=== PATIENT | male | born 1980 | race American Indian/Alaskan Native ===

== ENCOUNTER 2018-06-04 08:11 | Day surgery (SDC) | payer MEDICAID ==
[~2018-06-04] VITALS: Ht 180.3 cm; Wt 115.2 kg
[~2018-06-04 08:11] MED LIST: CHOL100046 PO; LISI10TA4 PO; famotidine 20mg tablet PO ONE; ringers solution, lacted 1,000 ML IV SCH
[2018-06-04 09:36] LABS: BASOPHILS # (AUTO) 0.1 X10'3 (0-0.2); BASOPHILS % (AUTO) 0.9 % (0-1); EOSINOPHILS # (AUTO) 1.4 X10'3 (0-0.9); EOSINOPHILS % (AUTO) 16.2 % (0-6); LYMPHOCYTES % (AUTO) 11.9 % (21-51); MEAN CORPUSCULAR HEMOGLOBIN 29.9 PG (27.0-31.0); MEAN CORPUSCULAR HGB CONC 33.3 % (33.0-36.5); MONOCYTES # (AUTO) 0.6 X10'3 (0-0.9); MONOCYTES % (AUTO) 7.3 % (2-12); NEUTROPHILS # (AUTO) 5.4 X10'3 (1.8-7.7); NEUTROPHILS % (AUTO) 63.7 % (42-75); PRE OP HEMATOCRIT 44.3 % (42.0-52.0); PRE OP HEMOGLOBIN 14.7 g/dL (14.0-17.9); PRE OP PLATELET COUNT 323 X10'3 (140-440); RED BLOOD COUNT 4.92 X10'6 (4.70-6.10); RED CELL DISTRIBUTION WIDTH 14.4 % (11.5-14.5)
[2018-06-04 09:50] LABS: ALBUMIN 3.6 G/DL (3.4-5.0); ALBUMIN/GLOBULIN RATIO 0.9 (1.1-1.5); ALKALINE PHOSPHATASE 68 IU/L (46-116); BLOOD UREA NITROGEN 11 MG/DL (7-18); CALCIUM 8.6 MG/DL (8.5-10.1); CHLORIDE 105 MMOL/L (99-107); CREATININE 0.92 MG/DL (0.60-1.10); PRE OP ALT 21 U/L (30-65); PRE OP ANION GAP 11 (8-16); PRE OP AST 15 U/L (10-37); PRE OP BILIRUB, TOTAL 0.3 MG/DL (0.0-1.0); PRE OP GLUCOSE 102 MG/DL (70-104); PRE OP POTASSIUM 4.1 MMOL/L (3.4-5.1); PRE OP SODIUM 140 MMOL/L (135-145); TOTAL CARBON DIOXIDE 24.5 MMOL/L (24-32); TOTAL PROTEIN 7.7 G/DL (6.4-8.2); eGFR > 90 ML/MIN
[2018-06-04] MEDS ORDERED: cefazolin/dext.iso 2gm/100 ML IV ONE (10:09)
[2018-06-04] MEDS ORDERED: BUPIVAcaine/PF 2.5mg/ml (0.25%) 10ml vial ONE (11:38)
[2018-06-04] MEDS ORDERED: midazolam 2 mg/2 ml injection ONE ×3 (12:20→12:39)
[2018-06-04] MEDS ORDERED: fentaNYL/PF 50MCG/1 ML 2ML syringe ONE ×2 (12:20→12:56)
[2018-06-04] MEDS ORDERED: labetalol 5mg/ml 20ml inj. IV ONE (12:51)
[2018-06-04] MEDS ORDERED: hydrALAZINE 20mg/ml inj. IV ONE (12:51)
[2018-06-04] MEDS ORDERED: propofol inj 20 ML IV ONE (13:02)
[2018-06-04 13:15] VITALS: BP 141/94
[2018-06-04 13:25] VITALS: BP 140/90
[2018-06-04 13:35] VITALS: BP 150/85
[2018-06-04 14:04] VITALS: BP 183/108
[2018-06-04 14:06] VITALS: BP 183/108
== END 2018-06-04 13:45 | disposition home or self-care (01) ==
LOC: PAS 08:11
PROVIDERS: ATTEND Orthopaedic Surgery Hand Surgery
DX: M24.642 Ankylosis, left hand (principal); M19.042 Primary osteoarthritis, left hand; F17.210 Nicotine dependence, cigarettes, uncomplicated; I10 Essential (primary) hypertension; E66.9 Obesity, unspecified; L40.8 Other psoriasis; Z91.018 Allergy to other foods; Z68.35 Body mass index [BMI] 35.0-35.9, adult; Z72.89 Other problems related to lifestyle; Z79.899 Other long term (current) drug therapy
CPT/HCPCS: 26951; 36415; 80053; 85025; A6222; A6446; A6449; J0360; J0690; J2250; J2704; J3010; J3490; J7120

== ENCOUNTER 2021-03-30 23:39 | Emergency (ER) | payer MEDICAID ==
[~2021-03-30] VITALS: Ht 180.3 cm; Wt 86.4 kg
[~2021-03-30 23:39] MED LIST changes: +LISI10TA27 PO; -LISI10TA4 PO; -famotidine 20mg tablet PO ONE; -ringers solution, lacted 1,000 ML IV SCH
[2021-03-31 01:40] LABS: ALANINE AMINOTRANSFERASE 35 U/L (12-78); ALBUMIN/GLOBULIN RATIO 0.4 (1.1-1.5); ALKALINE PHOSPHATASE 133 IU/L (46-116); ANION GAP 12 (8-16); ASPARTATE AMINO TRANSFERASE 134 U/L (10-37); BILIRUBIN,TOTAL 3.3 MG/DL (0.1-1.0); BLOOD UREA NITROGEN 4 MG/DL (7-18); BUN/CREATININE RATIO 3.1 (5.4-32.0); CALCIUM 7.5 MG/DL (8.5-10.1); CHLORIDE 105 MMOL/L (99-107); CREATININE 1.29 MG/DL (0.60-1.10); GLUCOSE 111 MG/DL (70-104); LIPASE 107 U/L (73-393); SODIUM 139 MMOL/L (135-145); TOTAL CARBON DIOXIDE 22.5 MMOL/L (24-32); TOTAL PROTEIN 7.5 G/DL (6.4-8.2); eGFR 61 ML/MIN
[2021-03-31 01:42] LABS: BASOPHILS # (AUTO) 0.2 X10'3 (0-0.2); BASOPHILS % (AUTO) 1.1 % (0-1); EOSINOPHILS # (AUTO) 0.9 X10'3 (0-0.9); EOSINOPHILS % (AUTO) 4.9 % (0-6); HEMATOCRIT 25.4 % (42.0-52.0); HEMOGLOBIN 8.6 g/dl (14.0-17.9); LYMPHOCYTES # (AUTO) 1.7 X10'3 (1.1-4.8); MEAN CORPUSCULAR HEMOGLOBIN 33.9 PG (27.0-31.0); MEAN CORPUSCULAR HGB CONC 33.9 g/dL (33.0-36.5); MEAN CORPUSCULAR VOLUME 99.9 FL (78-98); MEAN PLATELET VOLUME 8.5 FL (7.4-10.4); MONOCYTES # (AUTO) 1.4 X10'3 (0-0.9); MONOCYTES % (AUTO) 7.7 % (2-12); NEUTROPHILS # (AUTO) 14.2 X10'3 (1.8-7.7); NEUTROPHILS % (AUTO) 77.3 % (42-75); PLATELET COUNT 206 X10'3 (140-440); RED BLOOD COUNT 2.55 X10'6 (4.70-6.10); RED CELL DISTRIBUTION WIDTH 16.7 % (11.5-14.5); WHITE BLOOD COUNT 18.4 X10'3 (4.5-11.0)
[2021-03-31 01:46] LABS: POTASSIUM 2.9 MMOL/L (3.5-5.1)
[2021-03-31] MEDS ORDERED: potassium Cl 10 mEq/100mL bag IV ONE (02:05)
[2021-03-31 05:01] LABS: MAGNESIUM 1.4 MG/DL (1.5-2.4)
[2021-03-31 05:05] LABS: PHOSPHORUS 1.1 MG/DL (2.3-4.5)
[2021-03-31] MEDS ORDERED: Neutra Phos packet PO ONE (05:54)
[2021-03-31 06:06] LABS: OCCULT BLOOD STOOL NEGATIVE (Neg)
[2021-03-31 06:16] VITALS: BP 125/71
== END 2021-03-31 09:41 | disposition home or self-care (01) ==
LOC: ER 23:40
DX: K70.30 Alcoholic cirrhosis of liver without ascites (principal); I10 Essential (primary) hypertension; Z91.018 Allergy to other foods; Z79.899 Other long term (current) drug therapy
CPT/HCPCS: 36415; 74176; 80053; 82272; 83690; 83735; 84100; 84145; 85025; 86885; 86900; 86901; 93005; 96360; 96361; 99285; J3480